=== PATIENT | female | born 1980 | race Caucasian/White ===

== ENCOUNTER 2017-06-12 07:45 | Outpatient (CLI) | payer BC ==
[~2017-06-12] VITALS: Ht 167.6 cm; Wt 72.7 kg
[~2017-06-12 07:45] MED LIST: MOTRIN 600600 MG/TAB PO; PERCOCET 325 MG1 TA2 PO; PREDNISONE20 MG PO; VALTREX1 GM PO
[2017-06-12 08:08] VITALS: BP 116/79; PULSE 73; TEMP 98
[2017-06-12] MEDS ORDERED: PRENATAL (08:15)
[2017-06-12 09:00] VITALS: BP 116/79; PULSE 73; TEMP 98.2
[2017-06-12 09:28] LABS: COLLECTION METHOD CLEAN CATCH
[2017-06-12 09:30] VITALS: BP 110/73; PULSE 67
[2017-06-12 09:51] LABS: PH 6 (5-8); URINE APPEARANCE Clear; URINE BILIRUBIN Negative (NEGATIVE); URINE BLOOD Negative (NEGATIVE); URINE COLOR Straw; URINE GLUCOSE Negative (NEGATIVE); URINE KETONE Negative (NEGATIVE); URINE LEUKOCYTE ESTERASE Trace (NEGATIVE); URINE NITRATE Negative (NEGATIVE); URINE PROTEIN(semi-quant) Negative (NEGATIVE); URINE UROBILINOGEN Negative (NEGATIVE)
[2017-06-12 09:53] LABS: SQUAMOUS EPITHELIAL 0-2 /hpf
== END 2017-06-12 11:05 | disposition home or self-care (01) ==
LOC: LDRO 07:45
PROVIDERS: Obstetrics & Gynecology
DX: O62.9 Abnormality of forces of labor, unspecified (principal); Z3A.39 39 weeks gestation of pregnancy
CPT/HCPCS: J7120

== ENCOUNTER 2017-06-13 04:04 | Inpatient (IN) | payer BC ==
[~2017-06-13] VITALS: Ht 167.6 cm; Wt 72.7 kg
[2017-06-13] VITALS (18 sets, daily range): BP systolic 90–127; BP diastolic 52–76; PULSE 63–84; TEMP 97.5–98.4
[~2017-06-13 04:04] MED LIST changes: +PRENATAL
[2017-06-13 06:47] LABS: BASO % 0.2 % (0.0-2.0); GRAN # 13.5 (1.4-6.5); GRAN % 88.7 % (42.2-75.2); LYMPH # 1.3 (1.2-3.4); LYMPH % 8.4 % (20.0-51.0); MEAN CELL VOLUME 96 fl (80.0-100.0); MEAN CORPUSCULAR HGB CONC 32 g/dl (33.0-37.0); MONO # 0.3 (0.1-0.6); PLATELET COUNT 302 K/mm3 (130-400); RED BLOOD COUNT 3.74 M/mm3 (4.10-5.30); REDCELL DISTRIBUTION WIDTH-CV 13.6 % (11.5-14.5)
[2017-06-13 06:52] LABS: HEMATOCRIT 35.9 % (37.0-47.0); HEMOGLOBIN 11.3 g/dl (12.5-16.0); MEAN CORPUSCULAR HEMOGLOBIN 30 pg (27.0-31.0)
[2017-06-14 01:30] VITALS: BP 112/70; PULSE 70; TEMP 98.2
[2017-06-14 06:49] LABS: HEMATOCRIT 30.2 % (37.0-47.0); HEMOGLOBIN 9.6 g/dl (12.5-16.0)
[2017-06-14 08:00] VITALS: BP 110/73; PULSE 74; TEMP 98.3
[2017-06-14 16:30] VITALS: BP 106/67; PULSE 79; TEMP 98.1
[2017-06-14 20:20] VITALS: BP 103/68; PULSE 79; TEMP 98.7
[2017-06-15 00:08] VITALS: BP 114/69; PULSE 86; TEMP 98.4
[2017-06-15 07:30] VITALS: BP 107/58; PULSE 73; TEMP 97.8
[2017-06-15] MEDS ORDERED: IBU600 MG PO (08:22)
[2017-06-15] MEDS ORDERED: NORCO 325 MG-51 TAB PO (08:22)
[2017-06-15] MEDS ORDERED: SENOKOT S 50 MG1 TAB PO (08:23)
[2017-06-15] MEDS ORDERED: VISTARIL 2525 MG/CAP PO (08:23)
== END 2017-06-15 16:00 | disposition home or self-care (01) | DRG 766 ==
LOC: LDRO 04:04 → LDR 04:41 → OB 04:41
PROVIDERS: Obstetrics & Gynecology
PROC: 10D00Z1 Extraction of Products of Conception, Low, Open Approach (ICD-10-PCS; principal; 2017-06-13)
DX: O34.211 Maternal care for low transverse scar from previous cesarean delivery (principal); N85.8 Other specified noninflammatory disorders of uterus; O71.89 Other specified obstetric trauma; Z3A.39 39 weeks gestation of pregnancy; Z37.0 Single live birth
CPT/HCPCS: J0690; J1885; J2175; J2370; J2405; J2590; J3010; J7120